=== PATIENT | male | born 1985 | race Caucasian/White ===

== ENCOUNTER 2025-04-04 10:49 | Emergency (ER) | payer OTHER ==
[2025-04-04 11:09] VITALS: RESP 20; BMI 30.7
[2025-04-04] MEDS ORDERED: KETOROLAC TROMETHAMINE 30 MG/1 ML VIAL ONE (11:42)
[2025-04-04] MEDS: KETOROLAC TROMETHAMINE 30 MG/1 ML VIAL IVPUSH ONE (11:44)
[2025-04-04] MEDS: SODIUM CHLORIDE 0.9% 500 ML INFUS.BAG IV ONE (12:09)
[2025-04-04 12:13] LABS: ABSOLUTE IMMATURE GRANULOCYTES 0.01 x10^3/uL (0.0-0.031); BASOPHILS # 0.03 x10^3/uL (0.01-0.08); EOSINOPHIL % 0.4 % (0.8-7.0); EOSINOPHILS # 0.03 x10^3/uL (0.04-0.54); HEMATOCRIT 44.5 % (40.1-51.0); HEMOGLOBIN 14.4 g/dL (13.7-17.5); MCHC 32.4 g/dl (32.3-36.5); MEAN CELL VOLUME 90.3 fl (79.0-92.2); MEAN PLT VOLUME 12.9 fl (9.4-12.4); MONOCYTE # 0.41 x10^3/uL (0.30-0.82); MONOCYTE % 6.1 % (5.3-12.2); PLATELET COUNT 212 x10^3/uL (163-337)
[2025-04-04 12:14] LABS: PH,URINE 7.5 (5.0-8.0); URINE APPEARANCE CLEAR; URINE BILIRUBIN NEGATIVE (NEGATIVE); URINE COLOR YELLOW; URINE GLUCOSE (UA) NEGATIVE (NEGATIVE); URINE KETONE TRACE (NEGATIVE); URINE LEUK ESTERASE NEGATIVE (NEGATIVE); URINE NITRITE NEGATIVE (NEGATIVE); URINE PROTEIN NEGATIVE (NEGATIVE)
[2025-04-04 12:31] LABS: CHLORIDE 102 mmol/L (98-107); SODIUM 122 mmol/L (136-145)
[2025-04-04 12:34] LABS: ALBUMIN 3.2 g/dl (3.4-5.0); BLOOD UREA NITROGEN 13.1 mg/dL (7-18); CO2 25 mmol/L (21-32); GLUCOSE,RANDOM 109 mg/dL (74-106)
[2025-04-04 12:37] LABS: CREATININE 0.9 mg/dL (0.55-1.3)
[2025-04-04 12:38] LABS: TOT PROT 8.9 g/dl (6.4-8.2)
[2025-04-04 12:47] LABS: POTASSIUM > 10.0 mmol/L (3.5-5.1)
[2025-04-04 13:38] LABS: POTASSIUM 4.1 mmol/L (3.5-5.1)
[2025-04-04 13:43] LABS: CREATININE 0.8 mg/dL (0.55-1.3)
[2025-04-04 14:30] VITALS: BP 104/58; PULSE 58; TEMP 97.8
[2025-04-04 14:30] LABS: ALBUMIN 3.4 g/dl (3.4-5.0)
[2025-04-04 14:33] LABS: BILIRUBIN,DIRECT 0.1 mg/dL (0.0-0.2)
[2025-04-04 14:35] LABS: BILIRUBIN,TOTAL 0.4 mg/dL (0.2-1)
[2025-04-04] MEDS ORDERED: AMOX TR/POT CLAV 875MG/125MG TABLETS (FP) ONE (14:38)
[2025-04-04] MEDS: AMOX TR/POT CLAV 875MG/125MG TABLETS (FP) PO ONE (14:40)
[2025-04-04 14:42] LABS: TOT PROT 6.4 g/dl (6.4-8.2)
[2025-04-04] MEDS ORDERED: AZITHROMYCIN 500 MG TABLET ONE (14:55)
[2025-04-04] MEDS: AZITHROMYCIN 250 MG TABLET PO ONE (14:58)
[2025-04-04 15:24] LABS: HCV DIAGNOSTIC IN-HOUSE W/RFLX NON-REACTIVE (NONREACTIVE); HIV INTERPRETATION NEGATIVE (NEGATIVE)
== END 2025-04-04 15:28 | disposition home or self-care (01) ==
LOC: JER 10:49
PROC: 3E0333Z Introduction of Anti-inflammatory into Peripheral Vein, Percutaneous Approach (ICD-10-PCS; principal; 2025-04-04)
DX: J18.9 Pneumonia, unspecified organism (principal); R00.0 Tachycardia, unspecified; R07.81 Pleurodynia; J98.4 Other disorders of lung; R10.11 Right upper quadrant pain
CPT/HCPCS: 36415; 71046-TC-FY; 74176-TC; 80048; 80053; 80076; 81003; 85025; 86803; 87086; 87389; 99285-25